=== PATIENT | female | born 1995 | race Hispanic/Latino ===

== ENCOUNTER 2018-01-01 23:14 | Emergency (ER) | payer OTHER ==
[2018-01-01 23:30] VITALS: BP 131/87; PULSE 92; RESP 18; TEMP 98.5; O2SAT 100
[2018-01-02] MEDS ORDERED: Sodium Chloride 0.9% 1,000 ML IV STA (00:11)
[2018-01-02] MEDS ORDERED: DiphenhydrAMINE 50 mg/ml Inj IV STA (00:42)
--- NOTE | 2018-01-02 00:48 | ED PDOC ---
HPI: Headache Time Seen by Provider: 01/01/18 23:36 Chief Complaint (Nursing): Headache Chief Complaint (Provider): Headache History Per: Patient History/Exam Limitations: no limitations Onset/Duration Of Symptoms: Days (5) Associated Symptoms: Nausea, Vomiting. denies: Photophobia Additional Complaint(s): 22 years old female with history of migraines presents to ER for evaluation of migraine headache onset 5 days. Patient reports taking Excedrin with minimal to no relief. She reports pain radiates from shoulder to neck up to her head, which is typical for her migraines. Patient reports light and sound sensitivity, nausea and 1 episode of vomiting. She states she was here 4 years ago when a neurologist prescribed her Benadryl, Toradol, Reglan and SOLU-Medrol. Patient denies fever. PMD: non provided Past Medical History Reviewed: Historical Data, Nursing Documentation, Vital Signs Vital Signs: Last Vital Signs Temp 98.5 F 01/01/18 23:26 Pulse 92 H 01/01/18 23:26 Resp 18 01/01/18 23:26 BP 131/87 01/01/18 23:26 Pulse Ox 100 01/01/18 23:26 - Medical History PMH: Depression, Migraine - Surgical History Surgical History: No Surg Hx - Family History Family History: States: Unknown Family Hx - Social History Current smoker - smoking cessation education provided: No Alcohol: None Drugs: Denies - Home Medications Home Medications: Ambulatory Orders Medication Instructions Recorded Metoclopramide [Reglan] 10 mg PO Q6 PRN #12 tab 01/02/18 - Allergies Allergies/Adverse Reactions: Allergies Allergy/AdvReac Type Severity Reaction Status Date / Time No Known Allergies Allergy Verified 01/01/18 23:25 Review of Systems ROS Statement: Except As Marked, All Systems Reviewed And Found Negative Constitutional: Negative for: Fever Eyes: Positive for: Other (Light sensitivity) ENT: Positive for: Other (Sound sensitivity) Gastrointestinal: Positive for: Nausea, Vomiting Neurological: Positive for: Headache Physical Exam - Reviewed Nursing Documentation Reviewed: Yes Vital Signs Reviewed: Yes - Physical Exam Appears: Positive for: Non-toxic, No Acute Distress Head Exam: Positive for: ATRAUMATIC, NORMOCEPHALIC Skin: Positive for: Normal Color, Warm, Dry Neck: Positive for: Normal, Painless ROM, Supple Extremity: Positive for: Normal ROM. Negative for: Tenderness Neurologic/Psych: Positive for: Alert, Oriented (x3) - Laboratory Results Result Diagrams: 01/02/18 01:30 01/02/18 01:30 - ECG O2 Sat by Pulse Oximetry: 100 (RA) Pulse Ox Interpretation: Normal Medical Decision Making Medical Decision Making: Time: 10 Initial Impression: 22 years old female with migraines exacerbation. Initial Plan: --Labs --Benadryl 50 mg IV --NaCl 1,000 ml IV --SOLU-Medrol 125 mg IVP --Toradol 30 mg IV 0318 Labs reviewed with no significant abnormality. Patient reports marked improvement of symptoms, requires no further treatment in the ED and stable for discharge. ------- Scribe Attestation: Documented by Rosario Hummel, acting as a scribe for Morgan Holloway MD. Provider Scribe Attestation: All medical record entries made by the Scribe were at my direction and personally dictated by me. I have reviewed the chart and agree that the record accurately reflects my personal performance of the history, physical exam, medical decision making, and the department course for this patient. I have also personally directed, reviewed, and agree with the discharge instructions and disposition. Disposition - Clinical Impression Clinical Impression: Migraine - Patient ED Disposition Is Patient to be Admitted: No - Disposition Disposition: Routine/Home Disposition Time: 03:18 Condition: STABLE Prescriptions: Metoclopramide [Reglan] 10 mg PO Q6 PRN #12 tab PRN Reason: headache/nausea/vomiting Instructions: Migraine Headaches in Adults Forms: [employer] (Icelandic)
[2018-01-02] MEDS ORDERED: DiphenhydrAMINE 50 mg/ml Inj ONE (01:07)
[2018-01-02 01:49] LABS: BASO # 0.1 K/uL (0.0-0.2); BASO % 0.5 % (0.0-2.0); EOS # 0.2 K/uL (0.0-0.7); EOS % 1.1 % (0.0-4.0); HEMOGLOBIN 12.1 g/dL (12.0-16.0); LYMPH # 3.3 K/uL (1.0-4.3); LYMPH % 21.2 % (20.0-40.0); MEAN CELL VOLUME 88.9 fl (81.0-99.0); MEAN CORPUSCULAR HEMOGLOBIN 29.5 pg (27.0-31.0); MEAN CORPUSCULAR HGB CONC 33.2 g/dL (33.0-37.0); MEAN PLATELET VOLUME 8.3 fl (7.2-11.7); MONO # 1.2 K/uL (0.0-0.8); MONO % 7.9 % (0.0-10.0); NEUT # 10.9 K/uL (1.8-7.0); NEUT % 69.3 % (50.0-75.0); RBC 4.1 Mil/uL (3.80-5.20); RED CELL DISTRIBUTION WIDTH 12.6 % (11.5-14.5); WHITE BLOOD COUNT 15.7 K/uL (4.8-10.8)
[2018-01-02 01:54] LABS: ALB/GLOB RATIO 1.3 (1.0-2.1); ALBUMIN 3.8 g/dL (3.5-5.0); ALT/SGPT 24 U/L (9-52); AST/SGOT 23 U/L (14-36); BLOOD UREA NITROGEN 15 mg/dl (7-17); CALCIUM 9.1 mg/dL (8.4-10.2); GFR NON-AFRICAN AMERICAN > 60
[2018-01-02 02:09] LABS: SQUAMOUS EPITHIAL 4 /hpf (0-5); URINE BACTERIA OCC (<OCC); URINE BILIRUBIN NEGATIVE (NEGATIVE); URINE BLOOD NEGATIVE (NEGATIVE); URINE CLARITY CLOUDY (Clear); URINE COLOR YELLOW (YELLOW); URINE GLUCOSE (UA) NEG (Normal); URINE LEUKOCYTE ESTERASE NEG Leu/uL (Negative); URINE PROTEIN NEGATIVE (NEGATIVE); URINE UROBILINOGEN 0.2-1.0 mg/dL (0.2-1.0)
== END 2018-01-02 03:25 | disposition home or self-care (01) ==
LOC: H.ER 23:14
DX: G43.909 Migraine, unspecified, not intractable, without status migrainosus (principal)
CPT/HCPCS: 80053; 81003; 81025; 85025; 96374; 99285; J1200; J1885; J2765; J2930; J7030